=== PATIENT | female | born 1955 | race American Indian/Alaskan Native ===

== ENCOUNTER 2018-05-26 11:05 | Outpatient (CLI) | payer OTHER | END 2018-05-26 11:06 | disposition home or self-care (01) | LOC: C.PAT 11:05 | DX: Z01.818 Encounter for other preprocedural examination (principal) ==

== ENCOUNTER 2018-05-31 07:30 | Inpatient (IN) | payer OTHER ==
[2018-05-26 11:18] VITALS: BMI 32.4
[2018-06-07] MEDS ORDERED: Midazolam 2 MG/2 ML VIAL ONE (12:05)
[2018-06-07] MEDS ORDERED: Propofol 10 mg/ml Inj (20 ML) ONE (12:05)
[2018-06-07] MEDS ORDERED: ceFAZolin 1 gm in NS 2 GM/200 ML BAG IVPB ONE (12:06)
[2018-06-07] MEDS ORDERED: Bupivacaine Liposomal Inj 20 ml INFIL ONE (12:30)
[2018-06-07] MEDS: Bacitracin 150,000 UNIT in Sodium Chloride 0.9% Irrig 3,000 ML IR SCH ×2 (12:40→13:00)
[2018-06-07] MEDS ORDERED: Rocuronium 10 mg/ml (5 ml) ONE (13:14)
[2018-06-07] MEDS ORDERED: Sodium Chloride 0.9% 20 ML IV ONE (13:18)
[2018-06-07] MEDS ORDERED: Sodium Chloride 0.9% Inj (20mL) IV ONE (13:30)
[2018-06-07] MEDS ORDERED: Morphine 4 MG/ML VIAL ONE (14:20)
[2018-06-07] MEDS ORDERED: Bisacodyl 5mg EC Tab PO PRN (14:32)
[2018-06-07] MEDS ORDERED: Neostigmine 1:1000 (1 mg/ml) Inj ONE (15:09)
[2018-06-07] MEDS ORDERED: ePHEDrine 50 mg/ml Inj ONE (15:15)
[2018-06-07] MEDS ORDERED: EPINEPHrine 1 mg/ml (1:1000) Inj ONE (15:15)
[2018-06-07] MEDS ORDERED: HYDROmorphone 0.5 mg/0.5 ml ISec IVP PRN (16:23)
[2018-06-07] MEDS ORDERED: Lactated Ringer's 1,000 ML IV SCH (16:30)
[2018-06-07] MEDS ORDERED: Ropivacaine 0.5% PF (20 ml) inj INJ ONE (17:16)
--- NOTE | 2018-06-07 17:39 | PCM.ANESB7 ---
Adductor Canal Block - Adductor Canal Block Date of Procedure: 06/07/18 Anesthiologist: Carrillo Procedure Performed: Adductor Canal Block Left - Procedure Adductor Canal Block: 17:15-17:30 Left femoral nerve block, adductor canal approach, done in PACU post-operatively. Under sterile conditions, ultrasound guidance, 20 cc 0.5% ropivacaine injected, 5 cc increments, negative aspiration throughout, 4" stimulplex needle. Patient tolerated procedure well, VSS. Block requested by Dr. Weldon.
[2018-06-07] MEDS: Sodium Chloride 0.9% 1,000 ML IV SCH (19:00)
[2018-06-07] MEDS: ceFAZolin 2 GM in Sodium Chloride 0.9% 100 ML IVPB SCH (19:45)
--- NOTE | 2018-06-07 20:07 | PCM.SURG1 ---
Surgeon's Initial Post Op Note - Surgeon's Notes Surgeon: Juan Weldon MD/ Co-surgeon= Vu Arce III Cable Supervisor: Clinton Austin PA-C, HENRY Kaufman Type of Anesthesia: General Endo, Block Regional Pre-Operative Diagnosis: Left knee: #1 post-traumatic DJD. #2 healed comminuted patella fracture (DOI= 10/04/2015). #3 synovitis. #4 flexion contracture 5 degrees. #5 restricted range of motion (5-80 degrees). #6 varus deformity. #7 lateral patellar maltracking Operative Findings: Left knee: #1 post-traumatic DJD. #2 healed comminuted patella fracture (DOI= 10/04/2015). #3 synovitis. #4 flexion contracture 5 degrees. #5 restricted range of motion (5-80 degrees). #6 varus deformity. #7 lateral patellar maltracking. #8 Partial patellar tendon tear / tendonopathy Post-Operative Diagnosis: Left knee: #1 post-traumatic DJD. #2 healed comminuted patella fracture (DOI= 10/04/2015). #3 synovitis. #4 flexion contracture 5 degrees. #5 restricted range of motion (5-80 degrees). #6 varus deformity. #7 lateral patellar maltracking. #8 Partial patellar tendon tear / tendonopathy Operation Performed: Left knee: #1 total knee arthroplasty. #2 posterior capsule release. #3 open synovectomy (anterior, medial, lateral compartments). #4 lateral patellar retinaculum release. #5 VMO advancement / proximal extensor mechanism re-aligment. #6 primary patellar tendon repair. #7 regional peripheral nerve/ genicular nerve block Specimen/Specimens Removed: Specimen= synovitis/ synovial hypertrophic lining send to path, maria victoria cuts sent to path. tourniquet time= 120 min at 300mmHg. complications= none. Implants: #1 Medacta Primary GMK Sphere TKA system consiting of : size 2 cemented poly patellar button, size 4 cemented tibial tray, size 4 cemented distal femur, size 4-14mm height poly spacer. #2 Biomet antibiotic imed bone cement, 2 packets used Estimated Blood Loss: EBL {In ML}: 150 Blood Products Given: N/A Drains Used: Hemovac Post-Op Condition: Good Date of Surgery/Procedure: 06/07/18 Time of Surgery/Procedure: 16:00
[2018-06-07] MEDS ORDERED: Oxycodone/Acetaminophen 5/325 mg Tab PO PRN (20:18)
[2018-06-08] MEDS: ceFAZolin 2 GM in Sodium Chloride 0.9% 100 ML IVPB SCH ×3 (04:23→19:31)
[2018-06-08] MEDS: Sodium Chloride 0.9% 1,000 ML IV SCH (04:25)
[2018-06-08 07:30] LABS: MEAN CORPUSCULAR HEMOGLOBIN 35.1 pg (27.0-31.0); MEAN CORPUSCULAR HGB CONC 33.4 g/dL (33.0-37.0); MEAN PLATELET VOLUME 8.6 fL (7.2-11.7); RBC 2.78 Mil/uL (3.80-5.20)
[2018-06-08 07:33] LABS: HEMOGLOBIN 9.8 g/dL (11.0-16.0); WHITE BLOOD COUNT 12.6 K/uL (4.8-10.8)
[2018-06-08 08:11] LABS: BLOOD UREA NITROGEN 8 mg/dL (7-17); CALCIUM 7.6 mg/dl (8.6-10.4); GFR NON-AFRICAN AMERICAN > 60
--- NOTE | 2018-06-08 08:19 | CP.PCM.PN ---
Subjective - Date & Time of Evaluation Date of Evaluation: 06/08/18 Time of Evaluation: 08:15 - Subjective Subjective: Patient complaining of knee pain. Did not sleep well. Denies CP/SOB/dizziness. Objective - Vital Signs/Intake and Output Vital Signs (last 24 hours): Temp Pulse Resp BP Pulse Ox 98.2 F 70 20 161/83 H 97 06/08/18 04:59 06/08/18 04:59 06/08/18 04:59 06/08/18 04:59 06/08/18 04:59 Intake and Output: 06/08/18 06/08/18 06:59 18:59 Intake Total 950 Output Total 1530 Balance -580 - Medications Medications: Current Medications Acetaminophen (Tylenol 325mg Tab) 650 mg PO Q6 [facility] Last Admin: 06/08/18 00:00 Dose: Not Given Bisacodyl (Dulcolax) 10 mg PO HS PRN PRN Reason: Constipation Diazepam (Valium) 5 mg PO Q8 PRN PRN Reason: Muscle spasm Docusate Sodium (Colace) 100 mg PO BID [facility] Last Admin: 06/07/18 20:00 Dose: Not Given Enoxaparin Sodium (Lovenox) 40 mg SC Q24H [facility] Hydrochlorothiazide (Microzide) 12.5 mg PO DAILY [facility] Hydromorphone HCl (Dilaudid) 0.5 mg IVP Q4H PRN PRN Reason: Pain, severe (8-10) Cefazolin Sodium 2 gm/ Sodium (Chloride) 100 mls @ 100 mls/hr IVPB Q8H [facility]; Protocol Stop: 06/11/18 12:59 Last Admin: 06/08/18 04:23 Dose: 100 mls/hr Lactated Ringer's (Lactated Ringer's) 1,000 mls @ 100 mls/hr IV .Q10H [facility] Ketorolac Tromethamine (Toradol) 30 mg IM Q6 PRN PRN Reason: Pain, severe (8-10) Nebivolol (Bystolic) 10 mg PO DAILY [facility] Ondansetron HCl (Zofran Inj) 4 mg IVP Q6H PRN PRN Reason: Nausea/Vomiting Last Admin: 06/07/18 18:48 Dose: 4 mg Oxycodone/Acetaminophen (Percocet 5/325 Mg Tab) 2 tab PO Q4H PRN PRN Reason: Pain, moderate (4-7) Stop: 06/10/18 20:19 Last Admin: 06/08/18 04:38 Dose: 2 tab - Labs Labs: 06/08/18 07:18 06/08/18 07:18 - Extremities Exam Additional comments: 80cc hemovac +ROM ankle/toes sensation intact +DP/PT pulses knee immob intact Assessment and Plan (1) Left knee DJD Assessment & Plan: POD#1 s/p TKR PT/OT d/c planning VTE proph d/w Dr. Weldon, agrees with above Status: Acute
--- NOTE | 2018-06-08 08:54 | RAD ---
Date of service: 06/07/2018 PROCEDURE: Left Knee Radiographs. HISTORY: Pain. COMPARISON: None. FINDINGS: BONES: No fracture appreciated. The recent total knee arthroplasty alignment and its components appear unremarkable the tibial cement interface is normal. JOINTS: Total knee arthroplasty status JOINT EFFUSION: Present compatible with recent intervention. Anterior superior central drain in place. OTHER FINDINGS: Skin sutures noted. Tissue changes consistent with recent the intervention. IMPRESSION: Recent total knee arthroplasty with expectant joint effusion and drain in place. No fracture or hardware failure findings noted. Other findings as above.
--- NOTE | 2018-06-08 09:41 | CP.PCM.PN ---
Subjective - Date & Time of Evaluation Date of Evaluation: 06/08/18 Time of Evaluation: 07:00 - Subjective Subjective: Patient is a 62 year old F with PMHx of HTN who is POD #1 s/p L total knee replacement. Patient says her pain is about a 7/10. Patient's gilmore was removed and she is worried about having to move when she needs to urinate. Patient says the Percocet is making her feel nauseous. She says she has taken Oxycodone in the past without feeling nausea. Patient denies any headache, chest pain, shortness of breath, abdominal pain, nausea, vomiting. Patient has not had a bowel movement today. Objective - Vital Signs/Intake and Output Vital Signs (last 24 hours): Temp Pulse Resp BP Pulse Ox 98.9 F 76 20 153/81 H 94 L 06/08/18 09:07 06/08/18 09:07 06/08/18 09:07 06/08/18 09:07 06/08/18 09:07 Intake and Output: 06/08/18 06/08/18 06:59 18:59 Intake Total 950 Output Total 1530 Balance -580 - Medications Medications: Current Medications Acetaminophen (Tylenol 325mg Tab) 650 mg PO Q6 [facility] Last Admin: 06/08/18 05:52 Dose: Not Given Bisacodyl (Dulcolax) 10 mg PO HS PRN PRN Reason: Constipation Diazepam (Valium) 5 mg PO Q8 PRN PRN Reason: Muscle spasm Docusate Sodium (Colace) 100 mg PO BID [facility] Last Admin: 06/07/18 20:00 Dose: Not Given Enoxaparin Sodium (Lovenox) 40 mg SC Q24H [facility] Hydrochlorothiazide (Microzide) 12.5 mg PO DAILY [facility] Hydromorphone HCl (Dilaudid) 0.5 mg IVP Q4H PRN PRN Reason: Pain, severe (8-10) Cefazolin Sodium 2 gm/ Sodium (Chloride) 100 mls @ 100 mls/hr IVPB Q8H [facility]; Protocol Stop: 06/11/18 12:59 Last Admin: 06/08/18 04:23 Dose: 100 mls/hr Lactated Ringer's (Lactated Ringer's) 1,000 mls @ 100 mls/hr IV .Q10H [facility] Ketorolac Tromethamine (Toradol) 30 mg IM Q6 PRN PRN Reason: Pain, severe (8-10) Nebivolol (Bystolic) 10 mg PO DAILY [facility] Ondansetron HCl (Zofran Inj) 4 mg IVP Q6H PRN PRN Reason: Nausea/Vomiting Last Admin: 06/07/18 18:48 Dose: 4 mg Oxycodone/Acetaminophen (Percocet 5/325 Mg Tab) 2 tab PO Q4H PRN PRN Reason: Pain, moderate (4-7) Stop: 06/10/18 20:19 Last Admin: 06/08/18 04:38 Dose: 2 tab - Labs Labs: 06/08/18 07:18 06/08/18 07:18 - Constitutional Appears: Non-toxic, No Acute Distress - Head Exam Head Exam: ATRAUMATIC, NORMAL INSPECTION, NORMOCEPHALIC - Eye Exam Eye Exam: EOMI, Normal appearance - ENT Exam ENT Exam: Mucous Membranes Moist - Respiratory Exam Respiratory Exam: Clear to Ausculation Bilateral, NORMAL BREATHING PATTERN. absent: Rales, Rhonchi, Wheezes, Respiratory Distress, Stridor - Cardiovascular Exam Cardiovascular Exam: REGULAR RHYTHM, RRR, +S1, +S2 - GI/Abdominal Exam GI & Abdominal Exam: Soft, Normal Bowel Sounds. absent: Tenderness - Extremities Exam Additional comments: l knee immobilizer in place, dressing c/d/i - Back Exam Back Exam: NORMAL INSPECTION - Neurological Exam Neurological Exam: Alert, Awake, Oriented x3 - Psychiatric Exam Psychiatric exam: Normal Affect, Normal Mood - Skin Skin Exam: Intact, Normal Color, Warm Assessment and Plan - Assessment and Plan (Free Text) Assessment: s/p Total Knee Replacement POD#1 pain management as per ortho switch Percocet to Oxycodone HTN continue home meds: Bystolic 10mg po daily, HCTZ 12.5 mg po daily Prophylaxis DVT: Lovenox 40 sc q24h, scds no GI prophylaxis indicated Dulcolax 10mg po HS prn Discussed all management with Dr. Gibson
[2018-06-08] MEDS: Enoxaparin 40 mg Syringe SC SCH (10:10)
--- NOTE | 2018-06-08 10:11 | OP ---
PROCEDURE DATE: 06/07/2018 PREOPERATIVE DIAGNOSES: 1. Severe tricompartmental osteoarthritis of the left knee. 2. Severe synovitis in the left knee. POSTOPERATIVE DIAGNOSES: 1. Severe tricompartmental osteoarthritis of the left knee. 2. Severe synovitis, anterior and posterior compartments. 3. Posterior capsular contracture. 4. Lateral patellar retinacular contracture. The patient is status post left patellar fracture, which has rendered the knee very arthritic and the patellofemoral joint is destroyed; the medial and lateral compartments are destroyed as well. OPERATIVE FINDINGS: 1. Tricompartmental osteoarthritis, severe. 2. Status post residual patellar fracture. 3. Severe synovitis, anterior and posterior. 4. Posterior capsular contracture. 5. Lateral patellar retinacular contracture. There is some attenuation of the patellar ligament, but patellar ligament is intact. OPERATIVE PROCEDURE: 1. Primary left total knee replacement arthroplasty with patient specific instrumentation. 2. Anterior and posterior synovectomy. 3. Posterior capsular release. 4. Lateral patellar retinacular release. 5. Primary repair reconstruction of the patellar ligament. 6. [email or web address] CT-guided navigation. SURGEON: Juan Weldon MD CO-SURGEON: Vu Arce MD ANESTHESIA: General endotracheal anesthesia with regional block. ANESTHESIOLOGIST: Gregor Vizcaino MD COMPLICATIONS: None. DRAINS: One Hemovac drain. OPERATIVE INDICATION: Eliud Conner is a 62-year-old woman who was involved in a work-related injury, sustaining fracture of the patella. The patient underwent healing of the patella fracture but with severe arthritic change in patellofemoral joint and in the medial and lateral compartments of the knee. The patient also has raging synovitis as a direct cause result of the work-related injury. The patient had failed conservative management by Dr. Weldon. Pros, cons, risks, and benefits of replacement arthroplasty were discussed. The possibility of mechanical failure, infection, thromboembolic disease, secondary or tertiary surgery was discussed. OPERATIVE PROCEDURE: After having obtained informed consent, after having identified site, side, and procedure and a critical pause/time-out, after the satisfactory induction of the anesthetic, the patient identified as Eliud Conner in a supine position with all bony prominences well padded. The left lower extremity was prepped and free draped in the usual fashion for extremity surgery. The tourniquet had been applied, but was not yet inflated. After exsanguinating the limb using a 6-inch Esmarch bandage, the tourniquet, which had been applied, was inflated to 350 mmHg. The approach was made by Dr. Weldon. Approximately a 6-inch straight midline approach was made to the knee with knee in flexion. Skin incision was carried down through the skin and subcutaneous tissue. Dr. Weldon performs a medial arthrotomy. There was some elevation in the patellar ligament. The patellar ligament was intact. Approximately one-quarter of the fibers were elevated. A portion of the lateral fat pad was resected. Dissection was carried around posteromedially to the direct head of the semimembranous tendon. Anterior synovectomy was accomplished. There was found to be a raging and extremely inflamed anterior synovium. Anterior synovectomy was accomplished. At this point in time, the femur was exposed, great care was taken not to debride osteophytes at this point in time because of the [email or web address] computer generated instrumentation. This having been accomplished, the distal femoral cutting block was affixed to the femur after having etched the corresponding points on the [employer]ived[employer] model. Distal femoral cutting guide was affixed. The distal femoral cut was accomplished. The distal femoral cut was measured and found to be acceptable. At this point in time, the 4-in-1 cutting block was applied to the distal femur across the epicondylar axis. Anterior and posterior osteotomies were accomplished as well as Chamfer cuts. At this point in time, this was found to be evident of synovitis of the posterior compartment as well as marked contracture and osteophytosis in the posterior compartment. At this point in time, using the lamina clinical documentation consultant, the posterior compartment was exposed. At this point in time, Dr. Arce performed a thorough posterior synovectomy. Great care was taken to avoid injury to the posterior neurocirculatory structures. At this point in time, having performed the posterior synovectomy, a portion of the iliotibial band insertion into the lateral aspect of the tibial Gerdy's tubercle was released for visualization. The dissection had been carried around posteromedially and also laterally. Again, a portion of the patellar ligament had been elevated and will be repaired later. This having been accomplished, the [email or web address] exact same procedure was accomplished by Dr. Weldon on the tibia after having exposed the tibia. Dr. Arce dislocated the tibia and exposes the tibia. At this point in time, Dr. Weldon matches the MyKnee model, osteophytes intact for the proximal tibial cut. The cutting guide was affixed. At this point in time, the varus and valgus were set to 0 degrees, guides through rotation of the tibial component to the lateral aspect of the tibial condyle, midmalleolar axis. This having been accomplished, the tibial cut was accomplished. Again, there was found to be a posterior capsular contracture. Dr. Arce at this point in time inserts the laminar clinical documentation consultant and taking great care in the posterior compartment. The recess and contracture in the posterior capsule above the osteophytes in the posterior aspect of the femur were identified. The capsule was released using electrocautery. Great care was taken to avoid injury to the neurocirculatory structures. At this point in time, the Medacta instrument and curved osteotome were used to elevate the posterior capsule from the femur. The posterior capsule was elevated from the posterior aspect of the femur. The capsule was elevated wide from the posterior aspect of the femur because the patient had preoperative flexion contracture. This having been accomplished, at this point in time, Dr. Weldon approaches the patella. The patella was free-hand osteotomized and the patella girth was found to be intact. Border osteophytes were debrided. This having been accomplished, the posterior capsule having been released, the lateral patellar retinacular release was accomplished by Dr. Arce from inside out to ensure exposure and patellar balance. This having been accomplished, the proximal tibia having been prepared by Dr. Weldon. The femoral trial was placed and the tibial trial and a 13-mm polyethylene for excellent flexion and extension balance after release of the posterior capsule. This having been accomplished, the notch guide was placed. After the femoral trial was drilled, the lug holes were drilled. The intercondylar notch was reamed. This having been accomplished, the patella having been dislocated anteriorly, the femoral trial was applied. The tibial plate 13-mm polyethylene flexion and extension gap was found to be excellent. Dr. Arce checks balance as well as Dr. Weldon. There was some hyperextension within an 11-mm sphere polyethylene inserts with a 13-mm decided upon. The appropriate sized patella was reamed and inserted. The patella balance was found to be excellent as well after the lateral patellar retinacular release by Dr. Arce. Dr. Weldon prepares the bone for cementing and cementation. The bone having been prepared, the #4 cemented femoral component was applied. A #4 cemented tibial tray, a 13-mm polyethylene and the patella was cemented as well. The wound was thoroughly irrigated. At this point in time, Dr. Weldon reinforced the patella ligament with an anchor. The closure of the medial arthrotomy was accomplished by Dr. Weldon, and closure was referred to Dr. Weldon's operative report. Rafa-Heard compression dressing and knee immobilizers were applied. Postoperative x-rays revealed acceptable position and construct. Dr. Arce dictating his aspect of the operative note. Vu Arce MD
[2018-06-08] MEDS ORDERED: Ergocalciferol 50,000 Intl Units Cap PO SCH (11:30)
[2018-06-08] MEDS: Calcium-Vit D 250 mg-125 Units Tab UD PO SCH (11:59)
[2018-06-08] MEDS ORDERED: Enoxaparin 40 mg Syringe SC SCH (15:30)
--- NOTE | 2018-06-09 06:14 | OP ---
PROCEDURE DATE: 06/07/2018 PREOPERATIVE DIAGNOSES: Left knee: 1. Posttraumatic degenerative joint disease. 2. Healed comminuted patella fracture (date of injury=10/04/2015). 3. Synovitis. 4. 5-degree flexion contracture. 5. Restricted range of motion (5 to 80 degrees flexion). 6. Varus deformity. 7. Lateral patellar maltracking. POSTOPERATIVE DIAGNOSES: Left knee: 1. Posttraumatic degenerative joint disease. 2. Healed comminuted patella fracture (date of injury=10/04/2015). 3. Synovitis. 4. 5-degree flexion contracture. 5. Restricted range of motion (5 to 80 degrees flexion). 6. Varus deformity. 7. Lateral patellar maltracking. 8. Partial patellar tendon tear/tendinopathy. PROCEDURE: Left knee open: 1. Total knee arthroplasty. 2. Posterior capsule release. 3. Open synovectomy (anterior, medial, lateral compartments). 4. Lateral patellar retinacular release. 5. Vastus medialis obliquus advancement/proximal extensor mechanisms realignment. 6. Primary patellar tendon repair. 7. Region peripheral nerve/genicular nerve block. SURGEON: Juan Weldon MD CO-SURGEON: Vu Arce III, MD FACE PAINTER: YONG Gutierrez and HENRY Santana, registered nursing assistant vice president. JUSTIFICATION FOR CO-SURGEON: Vu Arce III, MD is a board certified orthopedic surgeon who is a joint arthroplasty specialist with over 20 years experience, whose presence for this procedure as a co-surgeon was of absolute medical necessity as he provided skilled co-surgeon presence with significant complex portions of the procedure, including a very complex total knee arthroplasty overall with soft tissue balancing, posterior capsule release, resection of posterior osteophytes, lateral retinacular release and ITB release, patellar resurfacing of a healed comminuted patella fracture, complex total knee arthroplasty of a posttraumatic DJD knee including surgical approach, synovectomy, distal femoral cut, proximal tibial cut, patellar cut and resurfacing, soft tissue balancing, medial releases, proximal extensor mechanism realignment, placement of trial implants, placement of final implants with proper cement technique, secondary soft tissue balancing and lateral retinacular release/ITB release, wound closure. Vu Arce III, MD was present for the entire case who was an absolute necessity functioning as a co-surgeon throughout the procedure. As this was a significantly complex total knee arthroplasty with significant posttraumatic DJD deformity in the setting of a healed comminuted patella fracture and significant soft tissue contractions. Without Vu Arce III, MD's presence as a co-surgeon, the procedure would not have been successfully completed with such a great result. JUSTIFICATION FOR PRIMARY FIBERGLASS FABRICATOR: Clinton Austin PA-C is a certified physician loan officer assistant and HENRY Santana is a certified surgical assistant vice president, Clinton Austin PA-C was present as a primary surgical supervisor and was of absolute medical necessity to be present to facilitate and perform as a primary skilled surgical supervisor with positioning of patient, positioning of extremity, management of surgical field, retraction of neurovascular structures, surgical approach, open extensive synovectomy, soft tissue releases, preparation of distal femur with distal femoral cuts, preparation of proximal tibia with proximal tibial cuts, preparation of patella with patellar cuts, placement of trial implants, soft tissue balancing, placement of spinal implants with proper cement technique, primary patellar tendon repair, lateral patellar retinacular release, proximal extensor mechanism realignment, wound closure, fitting and placement in postop hinged knee brace. Clinton Austin was present for the entire case and was an absolute necessity for successful completion of the procedure. Gloria London was also present for the entire case functioning with the description described above as a second surgical supervisor. TYPE OF ANESTHESIA: General endotracheal anesthesia with a postop regional nerve block placed by anesthesia staff in PACU as well as an intraoperative peripheral nerve block placed by primary surgeon as a genicular nerve block with long-acting Exparel. SPECIMENS: Synovitis/synovial hypertrophic lining sent to pathology, bony cuts sent to pathology. TOURNIQUET TIME: 120 minutes at 300 mmHg. COMPLICATIONS: None. ESTIMATED BLOOD LOSS: 150 mL. DRAINS: Hemovac drain x1. DISPOSITION: The patient was extubated and transferred to PACU in stable condition and tolerated the procedure well. IMPLANTS: 1. Medacta primary GMK sphere primary total knee arthroplasty system consisting of size 2 cemented polyethylene patellar button, size 4 cemented tibial tray, size 4 cemented distal femur, size 4 polyethylene spacer with 14-mm height. 2. Biomet antibiotic impregnated bone cement, two packets used. 3. Arthrex 4.75 BioComposite SwiveLock anchor for primary patellar tendon repair with FiberWire suture as well. INDICATIONS FOR SURGERY: The patient is a 62-year-old female with a past medical history significant for hypertension, obstructive sleep apnea, who presented to my office for the first time under my care on 10/27/2015 with left knee pain, swelling, and severely restricted range of motion since an injury at work on 10/04/2015. This is a [place] workers' comp case with a date of injury of 10/04/2015. The patient works at [employer] in [place]. On 10/04/2015 while at work, she was walking out in the office at [employer] in [place] and tripped over a box landing on her left knee. She developed immediate 10/10 pain localized to the anterior aspect of the knee which reduced range of motion and swelling. After she returned home to [place], she was seen at the Emergency Room at [facility] on 10/07/2015. After review of imaging and evaluation by ER staff, she was diagnosed with a comminuted patellar fracture and referred to the orthopedic faby care clinic at [facility] as at that point in time, there was confusion about insurance coverage. After some delay in proper referral and treatment, she finally ended up in my office on 10/27/2015 for evaluation and treatment. X-rays in the office on 10/27/2015 revealed a significantly comminuted mildly displaced patella fracture with overall alignment of the fracture fragments in an acceptable position. She was placed in a cylinder cast at that point in time and referred for further imaging. Prior to the fall on work on 10/04/2015, the patient states that she had significantly improved range of motion from 0 to approximately 120 or 130 degrees. She denies having any significant pain or disability. She stated that after her fall at work on 10/04/2015, she developed significant disability and restricted range of motion that did not improve. She was unable to return to work since day of injury. We have discussed surgical treatment options for the patella fracture, but at that point in time, she presented to my office four weeks post injury, and after discussing the risks, benefits and alternatives to the patellar ORIF, she elected to proceed with conservative treatment. Her overall alignment of the fracture fragments was acceptable, and as long as she was compliant with the conservative treatment recommendations, it was a good option for her. Again, she was placed in a well-padded cylinder cast and continued that treatment for four weeks. After four weeks, the cylinder cast was removed and she was placed in a postop hinged knee brace locked at 0 degrees extension for ambulation. After another four weeks, x-rays in the office showed that the patella fracture had indeed developed significant callus and the fracture lines had filled in. Her patellar pain had resolved, but she did have significant stiffness. She was referred to physical therapy for which she was compliant and continued conservative treatment with physical therapy for four more months. Finally after no significant improvement in her range of motion and CT confirmation that her patella fracture had healed, she was indicated for manipulation under anesthesia and cortisone intraarticular injection. She underwent the manipulation under anesthesia and cortisone intraarticular injection on 05/21/2016 at [facility]. Pre-manipulation range of motion was 5 degrees to 80 degrees flexion arc with a 5-degree flexion contracture and maximal flexion achieved at 80-degrees. Post-manipulation range of motion was 2 degrees to 130 degrees flexion arc with a 2-degree residual flexion contracture and maximum flexion at 130 degrees. She continued aggressive physical therapy for quite some time and continued followup in the office undergoing multiple cortisone injections in the office and physical therapy for almost two years. After about a year and a half of physical therapy, she was indicated for left knee total knee arthroplasty, synovectomy, posterior capsular release, lateral retinacular release to correct the lateral patella maltracking and other significant soft tissue releases. The risks, benefits, and alternatives of the procedure were discussed at length with the patient, the risks including, but not limited to infection, neurovascular damage, need for further surgery, failure of implants, catastrophic failure of implants, periprosthetic fracture, iatrogenic injury, loss of function, loss of limb, need for revision surgery including staged revision surgery for infection, development of chronic pain and disability, development of blood clots, inability to return to preinjury level of activity and function, anesthesia reactions including , perioperative cardiopulmonary collapse/complication. After answering all of her questions, she stated that she understood the risks and wished to proceed with surgery. She watched surgical animation videos and diagnosis animation videos in the office at length. After answering all of her questions, she stated that she had a good understanding of the procedure as well as the surgery to be done. It did take quite some time to obtain approval for the surgery from [place] [employer] comp. Finally, six months later, we did obtain the approval after a hearing was carried out in the [facility] and the procedure was scheduled at [facility] on 06/07/2018. She was referred to her primary care physician Dr. Ruddy Fernandez for preoperative medical evaluation and clearance as well as PATs. After some manipulation in her hypertension medication, her hypertension was much better controlled and she was cleared for surgery. PROCEDURE IN DETAIL: The patient was identified in the preoperative holding area and the left knee was marked for surgery. Once again as described above, the risks, benefits, and alternatives of the procedure were discussed at length with the patient and informed consent was obtained. After a brief discussion with the anesthesia staff, the patient was taken to the operating room and placed on a well-padded operating room table with all bony prominences and superficial neurovascular structures well-padded. IV perioperative antibiotics were administered successfully. An initial timeout was done with the surgeon, anesthesia staff, OR staff, all in agreement with the patient, the procedure being done, and the extremity being operated on. General anesthesia was administered without difficulty or complication. A Burrows catheter was placed under sterile conditions. Examination under anesthesia was then carried out. EXAMINATION UNDER ANESTHESIA: Left knee with significant crepitance, mild swelling, no warmth, no erythema, skin intact, range of motion severely restricted with a 5-degree flexion contracture flexing to 90 degrees flexion with a mechanical stop. Patella exhibited significant lateral maltracking with significant crepitance and palpable large osteophytes. There was overall varus alignment/deformity. Juan Weldon MD
[2018-06-09 08:13] LABS: MEAN PLATELET VOLUME 9.2 fL (7.2-11.7)
[2018-06-09 08:25] LABS: MEAN CELL VOLUME 104.9 fL (81.0-99.0); MEAN CORPUSCULAR HEMOGLOBIN 35.8 pg (27.0-31.0); MEAN CORPUSCULAR HGB CONC 34.1 g/dL (33.0-37.0); RBC 2.17 Mil/uL (3.80-5.20)
[2018-06-09 08:26] LABS: HEMOGLOBIN 7.8 g/dL (11.0-16.0)
[2018-06-09 08:35] LABS: BLOOD UREA NITROGEN 12 mg/dL (7-17); CALCIUM 7.6 mg/dl (8.6-10.4); GFR NON-AFRICAN AMERICAN 56
--- NOTE | 2018-06-09 09:34 | CP.PCM.PN ---
Subjective - Date & Time of Evaluation Date of Evaluation: 06/09/18 Time of Evaluation: 09:31 - Subjective Subjective: Patient states pain in her knee is a little better. Denies CP/SOB/dizziness/palp/numbness/tingling. Objective - Vital Signs/Intake and Output Vital Signs (last 24 hours): Temp Pulse Resp BP Pulse Ox 98.7 F 88 20 116/64 97 06/09/18 08:47 06/09/18 08:47 06/09/18 08:47 06/09/18 08:47 06/09/18 08:47 Intake and Output: 06/09/18 06/09/18 06:59 18:59 Output Total 25 Balance -25 - Medications Medications: Current Medications Acetaminophen (Tylenol 325mg Tab) 650 mg PO Q6 [facility] Last Admin: 06/09/18 05:53 Dose: 650 mg Bisacodyl (Dulcolax) 10 mg PO HS PRN PRN Reason: Constipation Calcium/Vitamin D (Oscal-D 250 Mg-125 Units Tab) 1 tab PO DAILY [facility] Last Admin: 06/08/18 11:59 Dose: 1 tab Diazepam (Valium) 5 mg PO Q8 PRN PRN Reason: Muscle spasm Last Admin: 06/08/18 22:02 Dose: 5 mg Docusate Sodium (Colace) 100 mg PO BID [facility] Last Admin: 06/08/18 17:44 Dose: 100 mg Enoxaparin Sodium (Lovenox) 40 mg SC Q24H [facility] Last Admin: 06/08/18 10:10 Dose: 40 mg Ergocalciferol (Drisdol 50,000 Intl Units Cap) 1 cap PO Q7D [facility] Last Admin: 06/08/18 12:29 Dose: 1 cap Hydrochlorothiazide (Microzide) 12.5 mg PO DAILY [facility] Last Admin: 06/08/18 10:10 Dose: 12.5 mg Hydromorphone HCl (Dilaudid) 0.5 mg IVP Q4H PRN PRN Reason: Pain, severe (8-10) Ketorolac Tromethamine (Toradol) 30 mg IM Q6 PRN PRN Reason: Pain, severe (8-10) Last Admin: 06/08/18 17:38 Dose: 30 mg Nebivolol (Bystolic) 10 mg PO DAILY [facility] Last Admin: 06/08/18 10:10 Dose: 10 mg Ondansetron HCl (Zofran Inj) 4 mg IVP Q6H PRN PRN Reason: Nausea/Vomiting Last Admin: 06/08/18 11:52 Dose: 4 mg Oxycodone HCl (Oxycodone Immediate Release Tab) 10 mg PO Q4H PRN PRN Reason: Pain, severe (8-10) Potassium Chloride (K-Dur 20 Meq Er Tab) 20 meq PO ONCE ONE Stop: 06/09/18 10:01 - Labs Labs: 06/09/18 08:09 06/09/18 08:09 - Extremities Exam Additional comments: hemovac 5cc, pulled +ROM ankle/toes, sensation intact +DP/PT pulses calves soft NT neg homans, dressing left intact per Dr. Weldon Assessment and Plan (1) Left knee DJD Assessment & Plan: POD#2 s/p left knee TKR -supp K -hgb 7.8, VSS, will see how patient tolerates PT and defer to medical team if transfusion is indicated -d/c planning to TCU -d/w Dr. Weldon, agrees with above Status: Acute (2) Acute blood loss anemia Assessment & Plan: as above Status: Acute (3) Vitamin D deficiency Assessment & Plan: very low supp Status: Acute
--- NOTE | 2018-06-09 09:38 | CP.PCM.PN ---
Subjective - Date & Time of Evaluation Date of Evaluation: 06/09/18 Time of Evaluation: 09:38 - Subjective Subjective: Progress Note for Dr. Gibson Patient seen and examined at bedside. Patient had a fever of 101 overnight and was controlled with Tylenol. Patient reports pain at surgical site. She has been actively using incentive spirometer at bedside. Patient denies dizziness, headache, shortness of breath, chest pain, nausea, vomiting, diarrhea, or urinary symptoms. Objective - Vital Signs/Intake and Output Vital Signs (last 24 hours): Temp Pulse Resp BP Pulse Ox 98.7 F 88 20 116/64 97 06/09/18 08:47 06/09/18 08:47 06/09/18 08:47 06/09/18 08:47 06/09/18 08:47 Intake and Output: 06/09/18 06/09/18 06:59 18:59 Output Total 25 Balance -25 - Medications Medications: Current Medications Acetaminophen (Tylenol 325mg Tab) 650 mg PO Q6 [facility] Last Admin: 06/09/18 05:53 Dose: 650 mg Bisacodyl (Dulcolax) 10 mg PO HS PRN PRN Reason: Constipation Calcium/Vitamin D (Oscal-D 250 Mg-125 Units Tab) 1 tab PO DAILY [facility] Last Admin: 06/08/18 11:59 Dose: 1 tab Diazepam (Valium) 5 mg PO Q8 PRN PRN Reason: Muscle spasm Last Admin: 06/08/18 22:02 Dose: 5 mg Docusate Sodium (Colace) 100 mg PO BID [facility] Last Admin: 06/08/18 17:44 Dose: 100 mg Enoxaparin Sodium (Lovenox) 40 mg SC Q24H [facility] Last Admin: 06/08/18 10:10 Dose: 40 mg Ergocalciferol (Drisdol 50,000 Intl Units Cap) 1 cap PO Q7D [facility] Last Admin: 06/08/18 12:29 Dose: 1 cap Hydrochlorothiazide (Microzide) 12.5 mg PO DAILY [facility] Last Admin: 06/08/18 10:10 Dose: 12.5 mg Hydromorphone HCl (Dilaudid) 0.5 mg IVP Q4H PRN PRN Reason: Pain, severe (8-10) Ketorolac Tromethamine (Toradol) 30 mg IM Q6 PRN PRN Reason: Pain, severe (8-10) Last Admin: 06/08/18 17:38 Dose: 30 mg Nebivolol (Bystolic) 10 mg PO DAILY [facility] Last Admin: 06/08/18 10:10 Dose: 10 mg Ondansetron HCl (Zofran Inj) 4 mg IVP Q6H PRN PRN Reason: Nausea/Vomiting Last Admin: 06/08/18 11:52 Dose: 4 mg Oxycodone HCl (Oxycodone Immediate Release Tab) 10 mg PO Q4H PRN PRN Reason: Pain, severe (8-10) Potassium Chloride (K-Dur 20 Meq Er Tab) 20 meq PO ONCE ONE Stop: 06/09/18 10:01 - Labs Labs: 06/09/18 08:09 06/09/18 08:09 - Additional Findings Additional findings: - Constitutional Appears: Non-toxic, No Acute Distress - Head Exam Head Exam: ATRAUMATIC, NORMAL INSPECTION, NORMOCEPHALIC - Eye Exam Eye Exam: EOMI, Normal appearance - ENT Exam ENT Exam: Mucous Membranes Moist - Respiratory Exam Respiratory Exam: Clear to Ausculation Bilateral, NORMAL BREATHING PATTERN. absent: Rales, Rhonchi, Wheezes, Respiratory Distress, Stridor - Cardiovascular Exam Cardiovascular Exam: REGULAR RHYTHM, RRR, +S1, +S2 - GI/Abdominal Exam GI & Abdominal Exam: Soft, Normal Bowel Sounds. absent: Tenderness - Extremities Exam Additional comments: left knee immobilizer in place, dressing c/d/i - Back Exam Back Exam: NORMAL INSPECTION - Neurological Exam Neurological Exam: Alert, Awake, Oriented x3 - Psychiatric Exam Psychiatric exam: Normal Affect, Normal Mood - Skin Skin Exam: Intact, Normal Color, Warm Assessment and Plan - Assessment and Plan (Free Text) Assessment: s/p Total Knee Replacement POD#2 pain management as per ortho switch Percocet to Oxycodone PT Anemia Hgb 7.8 today Secondary to blood loss in TKR procedure Two Units PRBC to be transfused HTN Bystolic 10mg po daily HCTZ 12.5 mg po daily Vitamin D def <12 on 06/08/18 Oscal D Ergocalciferol Prophylaxis DVT: Lovenox 40 sc q24h, scds no GI prophylaxis indicated Dulcolax 10mg po HS prn Dispo: Transfer to TCU at [place] tomorrow Discussed all management with Dr. Gibson
[2018-06-09] MEDS ORDERED: Potassium Chloride 20 mEq ER Tab PO ONE (10:00)
[2018-06-09] MEDS: Enoxaparin 40 mg Syringe SC SCH (10:37)
[2018-06-09] MEDS: Calcium-Vit D 250 mg-125 Units Tab UD PO SCH (10:45)
[2018-06-09] MEDS: oxyCODONE 10 mg Immediate Release Tab PO PRN (10:45)
[2018-06-09] MEDS ORDERED: Ferric Sodium Gluconat Complex 62.5 mg/5 ml Vial IVPB ONE (12:41)
[2018-06-09] MEDS: HYDROmorphone 0.5 mg/0.5 ml ISec IVP PRN (21:26)
[2018-06-10 03:07] VITALS: RESP 20
[2018-06-10 07:50] LABS: BASO # 0.1 K/uL (0.0-0.2); BASO % 0.5 % (0.0-2.0); EOS # 0.1 K/uL (0.0-0.7); EOS % 1.1 % (0.0-4.0); HEMOGLOBIN 9.5 g/dL (11.0-16.0); LYMPH # 2.6 K/uL (1.0-4.3); MEAN CORPUSCULAR HEMOGLOBIN 34.5 pg (27.0-31.0); MEAN CORPUSCULAR HGB CONC 34.5 g/dL (33.0-37.0); MEAN PLATELET VOLUME 8.9 fL (7.2-11.7); MONO # 2.1 K/uL (0.0-0.8); MONO % 18.1 % (0.0-10.0); NEUT # 6.8 K/uL (1.8-7.0); NEUT % 58.3 % (50.0-75.0); NRBC % 0.1 % (0.0-2.0); RBC 2.75 Mil/uL (3.80-5.20); RED CELL DISTRIBUTION WIDTH 15.7 % (11.5-14.5); WHITE BLOOD COUNT 11.6 K/uL (4.8-10.8)
[2018-06-10 08:02] LABS: BLOOD UREA NITROGEN 16 mg/dL (7-17); CALCIUM 8.1 mg/dl (8.6-10.4); GFR NON-AFRICAN AMERICAN > 60
[2018-06-10 08:04] LABS: MEAN CELL VOLUME 100.2 fL (81.0-99.0)
[2018-06-10] MEDS: Enoxaparin 40 mg Syringe SC SCH (10:16)
[2018-06-10] MEDS: Calcium-Vit D 250 mg-125 Units Tab UD PO SCH (10:17)
[2018-06-10] MEDS: HYDROmorphone 0.5 mg/0.5 ml ISec IVP PRN (10:23)
[2018-06-10] MEDS: guaiFENesin DM 100 mg-10 mg/5 ml UD PO PRN ×2 (12:19→19:30)
[2018-06-11] MEDS: Enoxaparin 40 mg Syringe SC SCH (09:09)
[2018-06-11] MEDS: Calcium-Vit D 250 mg-125 Units Tab UD PO SCH (09:09)
[2018-06-11] MEDS: HYDROmorphone 0.5 mg/0.5 ml ISec IVP PRN (09:17)
[2018-06-11] MEDS: oxyCODONE 10 mg Immediate Release Tab PO PRN (18:21)
[2018-06-11] MEDS: guaiFENesin DM 100 mg-10 mg/5 ml UD PO PRN (18:23)
[2018-06-11] MEDS: ceFAZolin 2 GM in Sodium Chloride 0.9% 100 ML IVPB SCH (18:35)
[2018-06-12] MEDS: ceFAZolin 2 GM in Sodium Chloride 0.9% 100 ML IVPB SCH ×2 (01:29→09:19)
--- NOTE | 2018-06-12 09:18 | CP.PCM.PN ---
Subjective - Date & Time of Evaluation Date of Evaluation: 06/12/18 Time of Evaluation: 07:00 - Subjective Subjective: Progress Note for Dr. Gibson Patient seen and examined at bedside. Patient had a bowel movement yesterday. She says her pain is improving and she is working with PT. Currently patient rates her pain 6/10. Patient denies dizziness, headache, shortness of breath, chest pain, nausea, vomiting, diarrhea, or urinary symptoms. Objective - Vital Signs/Intake and Output Vital Signs (last 24 hours): Temp Pulse Resp BP Pulse Ox 99.1 F 80 20 131/73 97 06/12/18 08:52 06/12/18 08:52 06/12/18 08:52 06/12/18 08:52 06/12/18 08:52 - Medications Medications: Current Medications Acetaminophen (Tylenol 325mg Tab) 650 mg PO Q6 [facility] Last Admin: 06/12/18 06:51 Dose: Not Given Bisacodyl (Dulcolax) 10 mg PO HS PRN PRN Reason: Constipation Calcium/Vitamin D (Oscal-D 250 Mg-125 Units Tab) 1 tab PO DAILY [facility] Last Admin: 06/11/18 09:09 Dose: 1 tab Diazepam (Valium) 5 mg PO Q8 PRN PRN Reason: Muscle spasm Last Admin: 06/08/18 22:02 Dose: 5 mg Docusate Sodium (Colace) 100 mg PO BID [facility] Last Admin: 06/11/18 18:35 Dose: 100 mg Enoxaparin Sodium (Lovenox) 40 mg SC Q24H [facility] Last Admin: 06/11/18 09:09 Dose: 40 mg Ergocalciferol (Drisdol 50,000 Intl Units Cap) 1 cap PO Q7D [facility] Last Admin: 06/08/18 12:29 Dose: 1 cap Guaifenesin/Dextromethorphan (Robitussin Dm) 5 ml PO Q4H PRN PRN Reason: Cough Last Admin: 06/11/18 18:23 Dose: 5 ml Hydrochlorothiazide (Microzide) 12.5 mg PO DAILY [facility] Last Admin: 06/11/18 09:08 Dose: 12.5 mg Cefazolin Sodium 2 gm/ Sodium (Chloride) 100 mls @ 100 mls/hr IVPB Q8H [facility] Last Admin: 06/12/18 01:29 Dose: 100 mls/hr Nebivolol (Bystolic) 10 mg PO DAILY [facility] Last Admin: 06/11/18 09:09 Dose: 10 mg Ondansetron HCl (Zofran Inj) 4 mg IVP Q6H PRN PRN Reason: Nausea/Vomiting Last Admin: 06/11/18 18:21 Dose: 4 mg Oxycodone HCl (Oxycodone Immediate Release Tab) 10 mg PO Q4H PRN PRN Reason: Pain, severe (8-10) Last Admin: 06/11/18 18:21 Dose: 10 mg - Labs Labs: 06/10/18 07:40 06/10/18 07:40 - Additional Findings Additional findings: - Constitutional Appears: Non-toxic, No Acute Distress - Head Exam Head Exam: ATRAUMATIC, NORMAL INSPECTION, NORMOCEPHALIC - Eye Exam Eye Exam: EOMI, Normal appearance - ENT Exam ENT Exam: Mucous Membranes Moist - Respiratory Exam Respiratory Exam: Clear to Ausculation Bilateral, NORMAL BREATHING PATTERN. absent: Rales, Rhonchi, Wheezes, Respiratory Distress, Stridor - Cardiovascular Exam Cardiovascular Exam: REGULAR RHYTHM, RRR, +S1, +S2 - GI/Abdominal Exam GI & Abdominal Exam: Soft, Normal Bowel Sounds. absent: Tenderness - Extremities Exam Additional comments: left knee immobilizer in place, dressing c/d/i - Back Exam Back Exam: NORMAL INSPECTION - Neurological Exam Neurological Exam: Alert, Awake, Oriented x3 - Psychiatric Exam Psychiatric exam: Normal Affect, Normal Mood - Skin Skin Exam: Intact, Normal Color, Warm Assessment and Plan - Assessment and Plan (Free Text) Assessment: s/p Total Knee Replacement POD#5 pain management as per ortho switch Percocet to Oxycodone PT Anemia stable Secondary to blood loss in TKR procedure Two Units PRBC transfused on 06/09/18 HTN Bystolic 10mg po daily HCTZ 12.5 mg po daily Vitamin D def <12 on 06/08/18 Oscal D Ergocalciferol Prophylaxis DVT: Lovenox 40 sc q24h, scds no GI prophylaxis indicated Dulcolax 10mg po HS prn Dispo: Patient stable for discharge to TCU at [place] Discussed all management with Dr. Gibson
[2018-06-12] MEDS: Enoxaparin 40 mg Syringe SC SCH (09:19)
[2018-06-12] MEDS: Calcium-Vit D 250 mg-125 Units Tab UD PO SCH (09:21)
[2018-06-12] MEDS: guaiFENesin DM 100 mg-10 mg/5 ml UD PO PRN (09:23)
[2018-06-12] MEDS: oxyCODONE 10 mg Immediate Release Tab PO PRN (09:24)
[2018-06-12 11:28] LABS: HEMOGLOBIN 8.6 g/dL (11.0-16.0); MEAN CELL VOLUME 100.5 fL (81.0-99.0); MEAN CORPUSCULAR HEMOGLOBIN 34.5 pg (27.0-31.0); MEAN CORPUSCULAR HGB CONC 34.3 g/dL (33.0-37.0); RBC 2.51 Mil/uL (3.80-5.20); WHITE BLOOD COUNT 7.6 K/uL (4.8-10.8)
[2018-06-12 11:44] LABS: BLOOD UREA NITROGEN 11 mg/dL (7-17); CALCIUM 7.8 mg/dl (8.6-10.4); GFR NON-AFRICAN AMERICAN > 60
--- NOTE | 2018-06-12 15:56 | CP.PCM.PN ---
Subjective - Date & Time of Evaluation Date of Evaluation: 06/12/18 Time of Evaluation: 15:00 - Subjective Subjective: Patient seen and examined at bedside comfortable on CPM. Pain well controlled. Able to tolerate PT walking in hallway today with RW. Denies CP/SOB/dizziness/fever. Objective - Vital Signs/Intake and Output Vital Signs (last 24 hours): Temp Pulse Resp BP Pulse Ox 99.1 F 80 20 131/73 97 06/12/18 08:52 06/12/18 08:52 06/12/18 08:52 06/12/18 08:52 06/12/18 08:52 Intake and Output: 06/12/18 06/12/18 06:59 18:59 Intake Total 100 Balance 100 - Medications Medications: Current Medications Acetaminophen (Tylenol 325mg Tab) 650 mg PO Q6 COUNTS INCLUDE 234 BEDS AT THE [facility] Last Admin: 06/12/18 13:00 Dose: Not Given Bisacodyl (Dulcolax) 10 mg PO HS PRN PRN Reason: Constipation Last Admin: 06/12/18 09:20 Dose: 10 mg Calcium/Vitamin D (Oscal-D 250 Mg-125 Units Tab) 1 tab PO DAILY COUNTS INCLUDE 234 BEDS AT THE [facility] Last Admin: 06/12/18 09:21 Dose: 1 tab Diazepam (Valium) 5 mg PO Q8 PRN PRN Reason: Muscle spasm Last Admin: 06/08/18 22:02 Dose: 5 mg Docusate Sodium (Colace) 100 mg PO BID COUNTS INCLUDE 234 BEDS AT THE [facility] Last Admin: 06/12/18 09:20 Dose: 100 mg Enoxaparin Sodium (Lovenox) 40 mg SC Q24H COUNTS INCLUDE 234 BEDS AT THE [facility] Last Admin: 06/12/18 09:19 Dose: 40 mg Ergocalciferol (Drisdol 50,000 Intl Units Cap) 1 cap PO Q7D COUNTS INCLUDE 234 BEDS AT THE [facility] Last Admin: 06/08/18 12:29 Dose: 1 cap Guaifenesin/Dextromethorphan (Robitussin Dm) 5 ml PO Q4H PRN PRN Reason: Cough Last Admin: 06/12/18 09:23 Dose: 5 ml Hydrochlorothiazide (Microzide) 12.5 mg PO DAILY COUNTS INCLUDE 234 BEDS AT THE [facility] Last Admin: 06/12/18 09:20 Dose: 12.5 mg Cefazolin Sodium 2 gm/ Sodium (Chloride) 100 mls @ 100 mls/hr IVPB Q8H COUNTS INCLUDE 234 BEDS AT THE [facility] Last Admin: 06/12/18 09:19 Dose: 100 mls/hr Nebivolol (Bystolic) 10 mg PO DAILY MAURICIO Last Admin: 06/12/18 09:21 Dose: 10 mg Ondansetron HCl (Zofran Inj) 4 mg IVP Q6H PRN PRN Reason: Nausea/Vomiting Last Admin: 06/11/18 18:21 Dose: 4 mg Oxycodone HCl (Oxycodone Immediate Release Tab) 10 mg PO Q4H PRN PRN Reason: Pain, severe (8-10) Last Admin: 06/12/18 09:24 Dose: 10 mg - Labs Labs: 06/12/18 11:20 06/12/18 11:20 - Extremities Exam Additional comments: L knee: Dressings CDI sensation intact SP/DP/TN motor intact EHL/FHL/TA/G pedal pulses intact comps soft NT b/l Assessment and Plan (1) Status post total left knee replacement Assessment & Plan: POD#5 s/p L TKA -HGB stable -PT/OT -knee imm and CPM as per order -Keep dressings clean and dry, will change 1 week postop -DVT ppx -orthopedically stable -above d/w Dr. Weldon in agreement Status: Acute
[2018-06-12 16:02] VITALS: BP 118/63; PULSE 75; TEMP 98.4; O2SAT 95
== END 2018-06-12 17:44 | DRG 470 ==
LOC: C.9S 06-07 09:21 → C.6T 06-07 20:38
PROVIDERS: ADMIT Internal Medicine Pulmonary Disease; ATTEND Internal Medicine Pulmonary Disease
PROC: 0SRD0J9 Replacement of Left Knee Joint with Synthetic Substitute, Cemented, Open Approach (ICD-10-PCS; principal; 2018-06-07 12:00)
DX: M19.92 Post-traumatic osteoarthritis, unspecified site (principal); D62 Acute posthemorrhagic anemia; M17.32 Unilateral post-traumatic osteoarthritis, left knee; M67.862 Other specified disorders of synovium, left knee; S82.092S Other fracture of left patella, sequela; M21.162 Varus deformity, not elsewhere classified, left knee; I10 Essential (primary) hypertension; G47.33 Obstructive sleep apnea (adult) (pediatric); E55.9 Vitamin D deficiency, unspecified; M65.9 Synovitis and tenosynovitis, unspecified; Z91.81 History of falling; M17.12 Unilateral primary osteoarthritis, left knee